=== PATIENT | male | born 1985 | race African-American/Black ===

== ENCOUNTER 2018-07-28 08:45 | Emergency (ER) | payer SELFPAY ==
[~2018-07-28] VITALS: Ht 175.3 cm; Wt 70.3 kg
--- NOTE | 2018-07-28 10:06 | RAD ---
ANKLE LEFT 3V, FOOT LEFT 3V Clinical Indication: PT ROLLED LT FOOT/ANKLE ON ICE LAST PM. PAIN TO LT LAT FOOT AND ANKLE Comparison: None. Findings: Question small ankle joint effusion. There is anterior and lateral ankle soft tissue swelling. Pre-Achilles fat is clear. Ankle mortise is intact. There is a sliver of bone and lucency at the tip of the lateral malleolus suspicious for acute avulsion type fracture. No other acute fracture is seen of the ankle. There is acute traumatic mildly comminuted fracture at the base of the fifth metatarsal. The fracture at the base of the fifth metatarsal is an avulsion fracture of the peroneus brevis. Fracture is nondisplaced. No other acute fracture of the foot. The bony articulations are maintained. No dorsal soft tissue swelling of the foot. IMPRESSION: 1. Acute traumatic mildly comminuted nondisplaced fracture at the base of the fifth metatarsal. 2. Tiny nondisplaced acute traumatic avulsion fracture at the tip of the lateral malleolus. Electronically signed by: Ishan hCristine MD (07/28/2018 10:01 AM) [id number]
[2018-07-28] MEDS ORDERED: HYDR-3164 PO (10:48)
--- NOTE | 2018-07-28 10:49 | PHYS DOC ---
Past Medical History Past Medical History: No Pertinent History Past Surgical History: No Surgical History Alcohol Use: None Drug Use: None Adult General Chief Complaint Chief Complaint: ANKLE PROBLEM HPI HPI Patient is a 33 year old male who presents today complaining of 7 out of 10 left lateral foot and left lateral ankle pain that began yesterday after he slipped on ice and fell. Patient states he rolled his ankle and foot. Patient denies any loss of consciousness when he fell. He states the pain is sharp and constant worse on weight bearing. He states he has not tried anything for the pain. Review of Systems Review of Systems Constitutional: Denies fever or chills [] Musculoskeletal: Reports left lateral ankle and foot pain Integument: Denies rash or skin lesions [] Neurologic: Denies headache, focal weakness or sensory changes [] All other systems were reviewed and found to be within normal limits, except as documented in this note. Physical Exam Physical Exam Constitutional: Well developed, well nourished, no acute distress, non-toxic appearance. [] Skin: Warm, dry, no erythema, no rash. [] Back: No tenderness, no CVA tenderness. [] Extremities: Left foot and left ankle mostly on the lateral aspect with mild soft tissue swelling and mild bruising. Tenderness on palpation of the left lateral foot especially at the base of the fifth metatarsal as well as left lateral ankle. Limited range of motion to the left foot and ankle due to pain. Full range of motion to the left toes. +2 left pedal pulse. Cap refill less than 2 seconds left toes. Neurologic: Alert and oriented X 3, normal motor function, normal sensory function, no focal deficits noted. [] Psychologic: Affect normal, judgement normal, mood normal. [] Current Patient Data Vital Signs Vital Signs Date Time Temp Pulse Resp B/P (MAP) Pulse Ox O2 Delivery O2 Flow Rate FiO2 07/28/18 09:32 99.3 79 14 130/63 (85) 100 Room Air 99.3 EKG EKG [] Radiology/Procedures Radiology/Procedures []PROCEDURE: ANKLE LEFT 3V ANKLE LEFT 3V, FOOT LEFT 3V Clinical Indication: PT ROLLED LT FOOT/ANKLE ON ICE LAST PM. PAIN TO LT LAT FOOT AND ANKLE Comparison: None. Findings: Question small ankle joint effusion. There is anterior and lateral ankle soft tissue swelling. Pre-Achilles fat is clear. Ankle mortise is intact. There is a sliver of bone and lucency at the tip of the lateral malleolus suspicious for acute avulsion type fracture. No other acute fracture is seen of the ankle. There is acute traumatic mildly comminuted fracture at the base of the fifth metatarsal. The fracture at the base of the fifth metatarsal is an avulsion fracture of the peroneus brevis. Fracture is nondisplaced. No other acute fracture of the foot. The bony articulations are maintained. No dorsal soft tissue swelling of the foot. IMPRESSION: 1. Acute traumatic mildly comminuted nondisplaced fracture at the base of the fifth metatarsal. 2. Tiny nondisplaced acute traumatic avulsion fracture at the tip of the lateral malleolus. Electronically signed by: Ishan Jones MD (07/28/2018 10:01 AM) [id number] DICTATED and SIGNED BY: ISHAN JONES MD DATE: 07/28/18 0957 Course & Med Decision Making Course & Med Decision Making Pertinent Labs and Imaging studies reviewed. (See chart for details) This is a 33-year-old male patient presenting to the ED today with left lateral foot pain and left ankle pain that began yesterday after he slipped on ice and fell. Left foot and left ankle x-rays interpreted by radiologist were noted for- acute traumatic mildly comminuted nondisplaced fracture at the base of the fifth metatarsal. Tiny nondisplaced acute traumatic avulsion fracture at the tip of the lateral malleolus. Patient was placed in a posterior leg splint by the emanations analysis technician, pre-and post neurovascular exam done by me is intact. Ice elevation encouraged over the crutches. Instructed to contact the orthopedic doctor today and set up a follow- up appointment. Dragon Disclaimer Dragon Disclaimer This electronic medical record was generated, in whole or in part, using a voice recognition dictation system. Departure Departure Impression: Primary Impression: Fracture of fifth metatarsal bone Additional Impressions: Fall from standing Fx lateral malleolus-closed Disposition: 01 HOME, SELF-CARE Condition: STABLE Referrals: NO PCP (PCP) ILEANA PHILIP II, MD Call his office today for a follo up appointment. Patient Instructions: Ankle Fracture, Foot Fracture Additional Instructions: You were evaluated in the emergency room and noted to have left ankle and left foot fractures. Please contact the provided orthopedic doctor today and set up a follow-up appointment. Ice elevate the extremity. Take the prescribed medications as needed for pain. Scripts Hydrocodone/Apap 5-325 (NORCO 5-325 TABLET) 1 Each Tablet 1 TAB PO Q6HRS, #20 TAB Prov: MIA HUTTON TRACY 07/28/18 Problem Qualifiers Primary Impression: Fracture of fifth metatarsal bone Encounter type: initial encounter Fracture type: closed Fracture alignment : nondisplaced Laterality: left Qualified Codes: S92.355A - Nondisplaced fracture of fifth metatarsal bone, left foot, initial encounter for closed fracture Additional Impressions: Fall from standing Encounter type: initial encounter Qualified Codes: W19.XXXA - Unspecified fall, initial encounter Fx lateral malleolus-closed Encounter type: initial encounter Fracture alignment: nondisplaced Laterality: left Qualified Codes: S82.65XA - Nondisplaced fracture of lateral malleolus of left fibula, initial encounter for closed fracture MIA HUTTON BOND RUNNER Jul 28, 2018 10:49
[2018-07-28 11:05] VITALS: BP 122/61
== END 2018-07-28 11:19 | disposition home or self-care (01) ==
LOC: ER 08:45
DX: S92.355A Nondisplaced fracture of fifth metatarsal bone, left foot, initial encounter for closed fracture (principal); S82.65XA Nondisplaced fracture of lateral malleolus of left fibula, initial encounter for closed fracture; W00.0XXA Fall on same level due to ice and snow, initial encounter; Y93.89 Activity, other specified; Y92.89 Other specified places as the place of occurrence of the external cause; Y99.8 Other external cause status
CPT/HCPCS: 29515; 73610; 73630; 99283